=== PATIENT | female | born 1965 | race Caucasian/White ===

== ENCOUNTER 2017-05-31 14:26 | Emergency (ER) | payer BC, OTHER | END 2017-05-31 15:00 | disposition home or self-care (01) | LOC: LB.ED 14:26 | DX: K91.873 Postprocedural seroma of a digestive system organ or structure following other procedure (principal); K91.871 Postprocedural hematoma of a digestive system organ or structure following other procedure; Z88.1 Allergy status to other antibiotic agents; Z98.890 Other specified postprocedural states | CPT/HCPCS: 99283 ==